=== PATIENT | male | born 1980 | race Two or more races ===

== ENCOUNTER 2021-01-16 07:36 | Emergency (ER) | payer MEDICAID ==
[~2021-01-16] VITALS: Ht 175.3 cm; Wt 75.0 kg
[2021-01-16] MEDS ORDERED: SODIUM CHLORIDE 0.9% 250 ML IRRIG SOLUTION BOTTLE IRRIG ONE (08:00)
[2021-01-16] MEDS ORDERED: PERTUSS(ACELL),DIPH,TET VAC/PF 0.5 ML SYRINGE IM. ONE (08:00)
[2021-01-16] MEDS ORDERED: LIDOCAINE 1%/EPI 1:200,000/PF 10 ML VIAL ID ONE (08:00)
[2021-01-16 12:54] VITALS: BP 141/84
== END 2021-01-16 13:11 | disposition home or self-care (01) ==
LOC: EMS 07:39
DX: S01.81XA Laceration without foreign body of other part of head, initial encounter (principal); S40.012A Contusion of left shoulder, initial encounter; S80.01XA Contusion of right knee, initial encounter; M54.2 Cervicalgia; F17.210 Nicotine dependence, cigarettes, uncomplicated; F12.90 Cannabis use, unspecified, uncomplicated; V49.9XXA Car occupant (driver) (passenger) injured in unspecified traffic accident, initial encounter; Y93.89 Activity, other specified; Y92.488 Other paved roadways as the place of occurrence of the external cause; Y99.8 Other external cause status
CPT/HCPCS: 12013; 70450; 70486; 72125; 73030; 73562; 96372; 99285; J0690; J3490; 90715

== ENCOUNTER 2021-08-11 09:41 | Emergency (ER) | payer MEDICAID ==
[~2021-08-11] VITALS: Ht 180.3 cm; Wt 75.0 kg
[2021-08-11 10:04] VITALS: BP 109/79
[2021-08-11] MEDS ORDERED: SULFAMETHOX/TRIMETH DS 800-160 MG/TABLET PO ONE (10:15)
[2021-08-11] MEDS ORDERED: IBUPROFEN 600 MG TABLET PO ONE (10:15)
[2021-08-11] MEDS ORDERED: CEPHALEXIN MONOHYDRATE 500 MG CAPSULE PO ONE (10:15)
[2021-08-11] MEDS ORDERED: SULF-261 PO (10:17)
[2021-08-11] MEDS ORDERED: CEPH500C3 PO (10:17)
== END 2021-08-11 10:32 | disposition home or self-care (01) ==
LOC: EMS 09:41
DX: L02.416 Cutaneous abscess of left lower limb (principal); F12.10 Cannabis abuse, uncomplicated; F17.210 Nicotine dependence, cigarettes, uncomplicated
CPT/HCPCS: 99284